=== PATIENT | female | born 1935 | race Caucasian/White ===

== ENCOUNTER → 2020-09-19 14:31 | Outpatient (BNVA) | payer MEDICARE, SELFPAY | PROVIDERS: Visit Provider Internal Medicine | DX: R55 Syncope and collapse (principal); E11.9 Type 2 diabetes mellitus without complications; E78.5 Hyperlipidemia, unspecified; I10 Essential (primary) hypertension; Z95.0 Presence of cardiac pacemaker; Z98.890 Other specified postprocedural states | CPT/HCPCS: 93005; 99202 ==

== ENCOUNTER 2020-10-08 09:53 | Outpatient (REF) | payer MEDICARE, SELFPAY ==
--- NOTE | ~2020-10-08 | US_ITS ---
EXAMINATION: US EXTRACRANIAL CAROTID DUPLEX, BILATERAL CLINICAL INFORMATION: Occlusion and stenosis of bilateral carotid arteries COMPARISON: Previous carotid ultrasound December 2013 TECHNIQUE: Real-time ultrasound and Doppler techniques (integrating B-mode 2-D vascular images, Doppler spectral analysis and color-flow Doppler imaging) were utilized to interrogate the extracranial carotid arteries, the vertebral arteries and proximal subclavian arteries bilaterally. The degree of stenosis is determined by criteria similar to NASCET. FINDINGS: Right Side: 1. There is significant atherosclerotic plaque seen in the bifurcation/proximal ICA region. 2. The common carotid artery PSV proximally is 31 cm/s and distally 57 cm/s. 3. The right internal carotid artery is occluded.. 4. The proximal external carotid artery PSV is 126 cm/s. 5. The vertebral artery shows 72 flow. 6. The subclavian artery waveforms are normal. Left Side: 1. There is calcified atherosclerotic plaque seen in the bifurcation/proximal ICA region. 2. The common carotid artery PSV proximally is 133 cm/s and distally 108 cm/s. 3. The proximal internal carotid artery velocities are 106 cm/s systolic and 19 cm/s diastolic. 4. The proximal external carotid artery PSV is 116 cm/s. 5. The vertebral artery shows antegrade flow. 6. The subclavian artery waveforms are normal. US/US carotid duplex BI IMPRESSION: 1. RIGHT: Right ICA occlusion. 2. LEFT: Calcified plaque. 0-49% left ICA stenosis. 3. There is no change in the category severity of disease when compared to the previous study dated 2013.
== END 2020-10-08 09:54 | disposition home or self-care (01) ==
LOC: HO.US 09:53
PROVIDERS: Visit Provider Internal Medicine
DX: I65.23 Occlusion and stenosis of bilateral carotid arteries (principal); Z98.890 Other specified postprocedural states
CPT/HCPCS: 93880

== ENCOUNTER → 2020-10-09 11:24 | Outpatient (REF) | payer MEDICARE, SELFPAY ==
--- NOTE | 2020-10-09 11:31 | CA_ITS ---
Transthoracic Echocardiogram Patient (Last, First, Middle): India Johnson M Gender: Female Date of : 1935 Age: 85 Procedure Date: 10/09/2020 Procedure Type: Transthoracic Echocardiogram Location: OP Height: 160.02 cm Weight: 81.65 kg BSA: 1.85 m2 Heart Rate: bpm BP: 120 / 84 mmHg Director Of Program Management: Referring MD: Marcus Mcdermott MD Symptoms: R55 - Syncope and collapse Study Quality: Fair ECG Rhythm: Ventriculary paced rhythm Conclusions: - The left ventricular systolic function is normal. The visually estimated ejection fraction is between 60-65%. - There is mild calcification of the aortic valve. - There is mild mitral annular calcification. - There is mild to moderate tricuspid valve regurgitation. Findings Left Ventricle Normal left ventricular cavity size. There is mildly increased left ventricular wall thickness. The left ventricular systolic function is normal. The visually estimated ejection fraction is between 60-65%. There is no evidence of regional wall motion abnormalities. E/E prime ratio is >15, consistent with elevated filling pressures. Evidence suggests grade I (mild) diastolic dysfunction. Right Ventricle Normal right ventricular cavity size and systolic function. There is a pacemaker wire seen in the right ventricle. Atria The left atrium is normal in size. The right atrium is normal in size. Aortic Valve There is a normal trileaflet aortic valve. There is mild calcification of the aortic valve. There is no aortic valve stenosis. There is trace (trivial) aortic valve regurgitation. Mitral Valve There is mild mitral annular calcification. There is trace mitral valve regurgitation. There is no mitral valve stenosis. Pulmonic Valve The pulmonic valve was not well visualized. Tricuspid Valve Normal tricuspid valve structure. There is mild to moderate tricuspid valve regurgitation. The pulmonary artery systolic pressure is normal. Great Vessels The aortic annulus, sinuses of valsalva, and asc aorta are normal in size. Venous The inferior vena cava is normal in size and collapses greater than 50% with inspiration. Pericardium/Pleural There is no evidence of pericardial effusion. Prior Study Comparison No prior study available for comparison. Measurements 2D Linear Measurements IVSd: 1.27 0.6-0.9/0.6-1.0 cm LVIDd: 3.56 3.9-5.3/4.2-5.9 cm LVIDd Index: 1.92 2.4-3.2/2.2-3.1 cm/m2 LVIDs: 2.23 2.0-3.6 cm LVPWd: 1.29 0.7-1.1 cm Ao Root: 2.90 2.1-3.5 cm LA Diam: 3.50 2.7-3.8/3.0-4.0 cm LAIDs Index: 1.89 1.5-2.3 cm/m2 LV Mass: 191.47 67-162/88-224 g LV Mass Index: 103.50 43-95/49-115 g/m2 LVOT Diam: 2.00 3.0+(-)1.3 cm Mitral Valve MV VTI: 0.38 MV Pk Deshawn: 1.55 MV Mn Deshawn: 0.91 MV Pk Grad: 10.00 MV Mn Grad: 4.00 MV Pk E: 0.96 MV PK A: 1.41 MV Decel Time: 264.00 E/A: 0.70 E'Lateral: 5.32 E'Medial: 4.35 E/E' Med: 22.10 E/E' Lat: 18.00 PHT: 77.00 MVA PHT: 2.86 MVA Continuity: 1.78 Decel Bledsoe: 3.64 Aortic Valve AoV Pk Deshawn: 1.27 AoV Mn Deshawn: 0.87 AoV VTI: 0.30 AoV Pk Grad: 6.00 Aov Mn Grad: 4.00 ANDREW Cont.VTI: 2.21 LVOT LVOT Pk Deshawn: 0.78 LVOT Mn Deshawn: 0.57 LVOT VTI: 0.21 LVOT Pk Grad: 2.00 LVOT Mn Grad: 1.00 LVOT Diam: 2.00 LVOT Area: 3.14 Diastolic Function MV Pk E: 0.96 MV Pk A: 1.41 E/A: 0.70 E'Medial: 4.35 E/E' Med: 22.10 E' Laterial: 5.32 E/E' Lat: 18.00 Tricuspid Valve TR Pk Deshawn: 2.26 TR Pk Grad: 20.00 Great Vessels Aorta Ao Root-2D: 2.90 2.0-3.7 cm Ao Asc: 3.10 2.1-3.4 cm Pulmonary Valve PV Pk Deshawn: 1.37 Peak PV Grad: 8.00 Updated in Other Vendor System with Status of Final Marcus Mcdermott MD electronically signed on 10/11/2020 2:20:19 PM with status of Final
== END ==
LOC: HO.CARD 11:24
PROVIDERS: Visit Provider Internal Medicine
DX: R55 Syncope and collapse (principal)
CPT/HCPCS: 93306

== ENCOUNTER → 2020-10-21 14:15 | Outpatient (BNVA) | payer MEDICARE, SELFPAY | PROVIDERS: Visit Provider Internal Medicine | DX: Z45.018 Encounter for adjustment and management of other part of cardiac pacemaker (principal); R55 Syncope and collapse; E11.8 Type 2 diabetes mellitus with unspecified complications; E78.5 Hyperlipidemia, unspecified; I10 Essential (primary) hypertension; Z98.890 Other specified postprocedural states | CPT/HCPCS: 99212 ==

== ENCOUNTER → 2021-06-23 12:19 | Outpatient (BNVA) | payer MEDICARE, SELFPAY | PROVIDERS: Visit Provider Internal Medicine | DX: Z45.018 Encounter for adjustment and management of other part of cardiac pacemaker (principal); R55 Syncope and collapse; E11.8 Type 2 diabetes mellitus with unspecified complications; I10 Essential (primary) hypertension; E78.5 Hyperlipidemia, unspecified; Z98.890 Other specified postprocedural states | CPT/HCPCS: 99212 ==

== ENCOUNTER → 2021-12-22 11:51 | Outpatient (BNVA) | payer MEDICARE, SELFPAY | PROVIDERS: Visit Provider Internal Medicine | DX: I47.1 Supraventricular tachycardia (principal); E11.9 Type 2 diabetes mellitus without complications; I10 Essential (primary) hypertension; E78.5 Hyperlipidemia, unspecified; Z79.4 Long term (current) use of insulin; Z79.899 Other long term (current) drug therapy; Z45.018 Encounter for adjustment and management of other part of cardiac pacemaker | CPT/HCPCS: 93280; 99212 ==

== ENCOUNTER 2022-06-09 23:40 | Emergency (ER) | payer MEDICARE, SELFPAY ==
--- NOTE | ~2022-06-09 | XR_ITS ---
EXAMINATION: XR CHEST CLINICAL INFORMATION: Sharp chest pain COMPARISON: 11/04/2011 TECHNIQUE: Frontal view of the chest was obtained. FINDINGS: Left chest wall pacer with leads over the right atrium and right ventricle. The lungs are well expanded. There is no focal consolidation, edema, or effusion. No pneumothorax. The cardiomediastinal silhouette is within normal limits of size with a calcified aorta. No acute osseous abnormality. XR/XR chest 1V IMPRESSION: No acute pulmonary disease.
[2022-06-10 00:02] VITALS: BP 132/56; BP 148/86; PULSE 68; RESP 16; TEMP 37.2; O2SAT 94; O2SAT 98; BMI 33.1
--- NOTE | 2022-06-10 00:14 | ED_ITS ---
HPI - Chest Pain General Chief Complaint: Chest Pain Stated Complaint: chest pressure Time Seen by Provider: 06/09/22 23:42 Source: patient and EMS Mode of arrival: EMS Limitations: no limitations History of Present Illness HPI narrative: Patient comes emergency room complaining of chest pain. Patient states that she was sleeping and had stabbing pain that lasted for less than 2nd, woke her from sleep and then self-resolved. Patient states the pain occurred 2 hours prior to arrival. Patient states that she call her roommate that she had chest pain which had already resolved, the roommate became concerned, called 911. Patient states that she feels well at this time, EMS gave her a full dose of aspirin. At this time, patient is asymptomatic, no chest pain no shortness of breath, no abdominal pain Related Data Home Medications Medication Instructions Recorded Confirmed amlodipine 10 mg tablet 10 mg PO DAILY 09/19/20 12/22/21 atorvastatin 10 mg tablet 10 mg PO DAILY 09/19/20 12/22/21 insulin glargine 100 unit/mL unit subcut 09/19/20 12/22/21 subcutaneous solution insulin lispro 100 unit/mL subcut 09/19/20 12/22/21 subcutaneous solution lisinopril 20 mg tablet 20 mg PO DAILY 09/19/20 12/22/21 metformin 500 mg tablet 500 mg PO BID 09/19/20 12/22/21 metoprolol tartrate 50 mg tablet 50 mg PO BID 09/19/20 12/22/21 aspirin 81 mg tablet,delayed 81 mg PO DAILY 10/21/20 12/22/21 release furosemide 40 mg tablet 40 mg PO DAILY 06/23/21 12/22/21 Allergies Allergy/AdvReac Type Severity Reaction Status Date / Time simvastatin [From Zocor] Allergy Mild RASH Verified 12/22/21 12:31 losartan [Cozaar] Allergy Unknown rash Verified 12/22/21 12:31 omeprazole [From Prilosec] AdvReac Mild NOT AN Verified 12/22/21 12:31 ALLERGY. PT DOES NOT THINK IT WORKS FOR HER Miacalcin Allergy Unknown rash Uncoded 12/22/21 12:31 Review of Systems Review of Systems: Constitutional : No Weight loss, No Fever, No Chills, No Night Sweats, No Fatigue, No Malaise ENT/Mouth : No Hearing loss, No Ear Pain, No Nasal Congestion, No Sinus Pain, No Hoarseness, No sore throat, No Rhinorrhea, No Swallowing Difficulty Eyes: No Eye Pain, No Swelling, No Redness, No Foreign Body, No Discharge, No Vision Changes Cardiovascular : Sharp chest pain lasting less than a 2nd approximately 2 hours prior to arrival,No SOB, No Dyspnea on Exertion, No Orthopnea, mild lower extremity edema, no palpitations Respiratory : No Cough, No Sputum, No Wheezing, No Smoke Exposure, No Dyspnea Gastrointestinal : No Nausea, No Vomiting, No Diarrhea, No Constipation, No abdominal Pain, No Hematochezia, No Melena Genitourinary : no irregular bleeding, No Dysuria, No Urinary Frequency, No Hematuria, No Urinary Incontinence, No Urgency, No Flank Pain, No Urinary Flow Changes, No Hesitancy Musculoskeletal : No joint pain, No Myalgias, No Joint Swelling Skin : No Skin Lesions, No rash Neuro : No Weakness, No Numbness, No Paresthesias, No Loss of Consciousness, No Dizziness, No Headache Psych : No Anxiety/Panic, No Depression, No SI/HI/AH/VH, No Social Issues, Heme/Lymph: No Bruising, No Bleeding,No Lymphadenopathy Endocrine : No Polyuria, No Polydipsia, No Temperature Intolerance PMFSH Past Medical History Medical History Essential hypertension Normally functioning cardiac pacemaker present Other and unspecified hyperlipidemia Type 2 diabetes mellitus with unspecified complications Surgical History History of hysterectomy Status post carotid endarterectomy Family History Family History Father Cancer Mother Heart attack Social History Social History Patient Tobacco Use Status: Never used Tobacco Smoked in Last 30 Days: No Use of substances other than those prescribed or required for medical reasons: No Advance Directives: No Physical Exam Vital Signs: Vital Signs: Last Vital Signs Temp 97.7 F 06/10/22 04:10 Pulse 70 06/10/22 04:10 Resp 20 06/10/22 04:10 BP 154/61 H 06/10/22 04:10 Pulse Ox 96 06/10/22 04:10 O2 Del Method 06/10/22 04:10 BMI result Body Mass Index 33.1 Const: Other: Appearance: Alert. Oriented X3. No acute distress. Eyes: Pupils equal, round and reactive to light. ENT: Pharynx normal. Neck: Normal inspection. Neck supple. No lymph nodes noted. No crepitus CVS: Normal heart rate and rhythm. Pulses normal. Normal S1 and S2 Respiratory: No respiratory distress. Breath sounds normal. No Wheezing. No rales Abdomen: Soft and nontender. No rigidity. No distention. Skin: Skin warm and dry. Normal skin color. Normal skin turgor. Extremities: No lower extremity edema. No Lacerations. No Rash Neuro: Oriented X 3. No motor deficit. No sensory deficit. Moving all extremities. No slurred speech. 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 Patient's creatinine is slightly bumped at 1.58. The last time that we have any labs from the patient was in 2015, creatinine was 0.86. Patient will be receiving a L of normal saline. Also, troponin 2. Will be checked along with a repeat chemistry, due at 345am patient's creatinine improved, almost back to Normal. Patient's troponin remains flat, stable, patient remains asymptomatic. Medications Administered Discontinued Medications Generic Name Dose Route Start Last Admin Trade Name Freq PRN Reason Stop Dose Admin Sodium Chloride 1,000 mls @ 999 mls/hr 06/10/22 01:21 06/10/22 03:16 Ns IVCONT 06/10/22 02:21 Infused .Q1H1M ONE Infusion MDM - Chest Pain Lab Data Result diagrams: 06/10/22 00:43 06/10/22 04:03 Labs: Lab Results 06/10/22 06/10/22 06/10/22 Range/Units 00:43 00:43 00:43 WBC 10.9 H (4.8-10.8) X10*3/uL RBC 4.04 L (4.20-5.50) X10*6/uL Hgb 12.1 (12.0-16.0) g/dl Hct 36.1 L (37.0-47.0) % MCV 89.4 (80.0-98.0) fL MCH 30.0 (27.0-33.0) pg MCHC 33.5 (31.0-35.0) g/dl RDW 12.4 (11.0-16.0) % Plt Count 204 (160-400) X10*3/uL MPV 10.6 (9.4-12.3) fL Immature Gran % (Auto) 0.5 H (0.0-0.4) % Neut % (Auto) 69.6 (45-73) % Lymph % (Auto) 20.4 (20-40) % [place] % (Auto) 6.5 (2-11) % Eos % (Auto) 2.4 (0-4) % Baso % (Auto) 0.6 (0-2) % Lymph # (Auto) 2.2 (1.2-4.9) X10*3/uL [place] # (Auto) 0.7 (0.1-1.2) X10*3/uL Eos # (Auto) 0.3 (0.0-0.4) X10*3/uL Baso # (Auto) 0.1 (0.0-0.2) X10*3/uL Abs Immat Gran (auto) 0.05 H (0.00-0.03) X10*3/uL Absolute Neuts (auto) 7.6 (2.0-8.3) x10*3/uL Absolute Nucleated RBC 0.000 (0.0-0.012) X10*3/uL Nucleated RBC % (auto) 0.0 (0.0-0.2) /100WBC Sodium 140 (135-145) mmol/L Potassium 4.3 (3.3-5.1) mmol/L Chloride 101 (96-108) mmol/L Carbon Dioxide 27 (22-29) mmol/L Anion Gap 16 (12-20) BUN 54 H (9-16) mg/dL Creatinine 1.58 H (0.5-1.4) mg/dL Estim Creat Clear Calc 26.4 Estimated GFR 31 Random Glucose 175 H (60-115) mg/dL Calcium 9.3 (8.4-10.2) mg/dL Total Bilirubin 0.5 (0.0-1.0) mg/dL Direct Bilirubin 0.2 (0.0-0.5) mg/dL AST 30 (5-31) U/L ALT 34 H (0-31) U/L Alkaline Phosphatase 97 (39-117) U/L Troponin I High Sens 5.8 (<3.5-17.0) ng/L B-Natriuretic Peptide (<100) pg/mL Total Protein 6.4 L (6.5-8.0) g/dL Albumin 3.9 (3.5-5.0) g/dL COVID-19 ([facility]UELANGEL) (Negative) COVID-19 Clin Com 06/10/22 06/10/22 06/10/22 Range/Units 00:43 00:43 01:52 WBC (4.8-10.8) X10*3/uL RBC (4.20-5.50) X10*6/uL Hgb (12.0-16.0) g/dl Hct (37.0-47.0) % MCV (80.0-98.0) fL MCH (27.0-33.0) pg MCHC (31.0-35.0) g/dl RDW (11.0-16.0) % Plt Count (160-400) X10*3/uL MPV (9.4-12.3) fL Immature Gran % (Auto) (0.0-0.4) % Neut % (Auto) (45-73) % Lymph % (Auto) (20-40) % [place] % (Auto) (2-11) % Eos % (Auto) (0-4) % Baso % (Auto) (0-2) % Lymph # (Auto) (1.2-4.9) X10*3/uL [place] # (Auto) (0.1-1.2) X10*3/uL Eos # (Auto) (0.0-0.4) X10*3/uL Baso # (Auto) (0.0-0.2) X10*3/uL Abs Immat Gran (auto) (0.00-0.03) X10*3/uL Absolute Neuts (auto) (2.0-8.3) x10*3/uL Absolute Nucleated RBC (0.0-0.012) X10*3/uL Nucleated RBC % (auto) (0.0-0.2) /100WBC Sodium 139 (135-145) mmol/L Potassium 4.6 (3.3-5.1) mmol/L Chloride 102 (96-108) mmol/L Carbon Dioxide 26 (22-29) mmol/L Anion Gap 16 (12-20) BUN 53 H (9-16) mg/dL Creatinine 1.50 H (0.5-1.4) mg/dL Estim Creat Clear Calc 27.7 Estimated GFR 33 Random Glucose 155 H (60-115) mg/dL Calcium 9.2 (8.4-10.2) mg/dL Total Bilirubin (0.0-1.0) mg/dL Direct Bilirubin (0.0-0.5) mg/dL AST (5-31) U/L ALT (0-31) U/L Alkaline Phosphatase (39-117) U/L Troponin I High Sens (<3.5-17.0) ng/L B-Natriuretic Peptide 38 (<100) pg/mL Total Protein (6.5-8.0) g/dL Albumin (3.5-5.0) g/dL COVID-19 ([facility]UELANGEL) Negative (Negative) COVID-19 Clin Com See Note 06/10/22 06/10/22 06/10/22 Range/Units 01:52 04:03 04:03 WBC (4.8-10.8) X10*3/uL RBC (4.20-5.50) X10*6/uL Hgb (12.0-16.0) g/dl Hct (37.0-47.0) % MCV (80.0-98.0) fL MCH (27.0-33.0) pg MCHC (31.0-35.0) g/dl RDW (11.0-16.0) % Plt Count (160-400) X10*3/uL MPV (9.4-12.3) fL Immature Gran % (Auto) (0.0-0.4) % Neut % (Auto) (45-73) % Lymph % (Auto) (20-40) % [place] % (Auto) (2-11) % Eos % (Auto) (0-4) % Baso % (Auto) (0-2) % Lymph # (Auto) (1.2-4.9) X10*3/uL [place] # (Auto) (0.1-1.2) X10*3/uL Eos # (Auto) (0.0-0.4) X10*3/uL Baso # (Auto) (0.0-0.2) X10*3/uL Abs Immat Gran (auto) (0.00-0.03) X10*3/uL Absolute Neuts (auto) (2.0-8.3) x10*3/uL Absolute Nucleated RBC (0.0-0.012) X10*3/uL Nucleated RBC % (auto) (0.0-0.2) /100WBC Sodium (135-145) mmol/L Potassium (3.3-5.1) mmol/L Chloride (96-108) mmol/L Carbon Dioxide (22-29) mmol/L Anion Gap (12-20) BUN (9-16) mg/dL Creatinine 1.45 H (0.5-1.4) mg/dL Estim Creat Clear Calc 28.7 Estimated GFR 34 Random Glucose (60-115) mg/dL Calcium (8.4-10.2) mg/dL Total Bilirubin (0.0-1.0) mg/dL Direct Bilirubin (0.0-0.5) mg/dL AST (5-31) U/L ALT (0-31) U/L Alkaline Phosphatase (39-117) U/L Troponin I High Sens 7.1 7.9 (<3.5-17.0) ng/L B-Natriuretic Peptide (<100) pg/mL Total Protein (6.5-8.0) g/dL Albumin (3.5-5.0) g/dL COVID-19 ([facility]UELANGEL) (Negative) COVID-19 Clin Com Discharge Plan Discharge Clinical Impression: Atypical chest pain, Acute kidney injury Patient Disposition: Home, Self-Care Instructions: Acute Kidney Injury (DC), Chest Pain (ED) Additional Instructions: FINDINGS: The lungs are well expanded. There is no focal consolidation, edema, or effusion. No pneumothorax. The cardiomediastinal silhouette is within normal limits. No acute osseous abnormality. XR/XR chest 1V IMPRESSION: Clear lungs. Prescriptions: No Action amlodipine 10 mg tablet 10 mg PO DAILY atorvastatin 10 mg tablet 10 mg PO DAILY Lantus U-100 Insulin 100 unit/mL solution subcut metoprolol tartrate 50 mg tablet 50 mg PO BID lisinopril 20 mg tablet 20 mg PO DAILY metformin 500 mg tablet 500 mg PO BID insulin lispro 100 unit/mL solution subcut aspirin 81 mg tablet,delayed release (DR/EC) 81 mg PO DAILY furosemide 40 mg tablet 40 mg PO DAILY
--- NOTE | 2022-06-10 00:18 | ECG_ITS ---
Test Reason : CHEST PAIN Blood Pressure : / mmHG Vent. Rate : 065 BPM Atrial Rate : 065 BPM P-R Int : 186 ms QRS Dur : 154 ms QT Int : 468 ms P-R-T Axes : 063 -42 102 degrees QTc Int : 486 ms Atrial-sensed ventricular-paced rhythm Abnormal ECG When compared with ECG of 29-APR-2016 13:44, Vent. rate has decreased BY 39 BPM Referred By: Neida Mace Electronically Signed By:GLORIA RICKS MD
[2022-06-10 00:51] LABS: MANUAL DIFF FLAG NO
[2022-06-10 00:52] LABS: Hemoglobin 12.1 g/dl (12.0-16.0); Imm Gran Abs Auto 0.05 X10*3/uL (0.00-0.03); Imm Gran Pct Auto 0.5 % (0.0-0.4); PLT CLUMP 1; SCAN SMEAR FLAG 1
[2022-06-10 00:54] VITALS: BP 136/55; PULSE 73; RESP 22; TEMP 36.7; O2SAT 95
[2022-06-10 00:54] LABS: Basophils Absolute Auto 0.1 X10*3/uL (0.0-0.2); Basophils Percent Auto 0.6 % (0-2); Eosinophils Absolute Auto 0.3 X10*3/uL (0.0-0.4); Eosinophils Percent Auto 2.4 % (0-4); Hematocrit 36.1 % (37.0-47.0); Lymphocytes Absolute Auto 2.2 X10*3/uL (1.2-4.9); Lymphocytes Percent Auto 20.4 % (20-40); Mean Corpuscular HGB Conc 33.5 g/dl (31.0-35.0); Mean Corpuscular Volume 89.4 fL (80.0-98.0); Mean Platelet Volume 10.6 fL (9.4-12.3); Monocytes Absolute Auto 0.7 X10*3/uL (0.1-1.2); Monocytes Percent Auto 6.5 % (2-11); Neutrophils Absolute Auto 7.6 x10*3/uL (2.0-8.3); Neutrophils Percent Auto 69.6 % (45-73); Red Blood Count 4.04 X10*6/uL (4.20-5.50); Red Cell Distribution Width 12.4 % (11.0-16.0)
[2022-06-10 01:01] LABS: Platelet Count 204 X10*3/uL (160-400); White Blood Count 10.9 X10*3/uL (4.8-10.8)
[2022-06-10 01:12] LABS: COVID-19 Test Negative (Negative); IDNOW Serial# BCCEAD1C
[2022-06-10 01:15] LABS: Alanine Aminotransferase 34 U/L (0-31); Albumin Level 3.9 g/dL (3.5-5.0); Alkaline Phosphatase 97 U/L (39-117); Anion Gap 16 (12-20); Aspartate Amino Transferase 30 U/L (5-31); Bilirubin Direct 0.2 mg/dL (0.0-0.5); Bilirubin Total 0.5 mg/dL (0.0-1.0); Blood Urea Nitrogen 54 mg/dL (9-16); Calcium 9.3 mg/dL (8.4-10.2); Carbon Dioxide 27 mmol/L (22-29); Chloride 101 mmol/L (96-108); Creatinine Clr Calc Pharmacy 26.4; Estimated Glomerular Filt Rate 31; Glucose Random 175 mg/dL (60-115); Potassium 4.3 mmol/L (3.3-5.1); Sodium 140 mmol/L (135-145); Total Protein 6.4 g/dL (6.5-8.0)
[2022-06-10 01:17] LABS: Troponin-I High Sensitivity 5.8 ng/L (<3.5-17.0)
[2022-06-10 01:18] LABS: B Type Natriuretic Peptide 38 pg/mL (<100)
[2022-06-10 02:12] LABS: Anion Gap 16 (12-20); Blood Urea Nitrogen 53 mg/dL (9-16); Calcium 9.2 mg/dL (8.4-10.2); Carbon Dioxide 26 mmol/L (22-29); Chloride 102 mmol/L (96-108); Creatinine Clr Calc Pharmacy 27.7; Estimated Glomerular Filt Rate 33; Glucose Random 155 mg/dL (60-115); Potassium 4.6 mmol/L (3.3-5.1); Sodium 139 mmol/L (135-145)
[2022-06-10] MEDS: 0.9 % Sodium Chloride 1,000 ML 999 ML IVCONT (02:15)
[2022-06-10 02:20] LABS: Troponin-I High Sensitivity 7.1 ng/L (<3.5-17.0)
[2022-06-10 03:02] VITALS: BP 131/47; PULSE 71; RESP 18; TEMP 36.4; O2SAT 96
[2022-06-10 04:10] VITALS: BP 154/61; PULSE 70; RESP 20; TEMP 36.5; O2SAT 96
--- NOTE | 2022-06-10 04:11 | PC.NURSE ---
Pt reports not experiencing chest pain at the time of the re-assessment. Pt has AV pacer, pt is on the monitor, IVF are running 100ml/hr, IV 20 L wrist. Pt is able to ambulate to the bathroom. Pt is + skin turgor, has pitting edema +1, normal pt. Pt lungs sounds are audible throughout bilaterally. Pt has 3 baby aspirin prior to arrival by EMS, pt appears on no distress. will continue to monitor.
--- NOTE | 2022-06-10 04:22 | PC.NURSE ---
pt used restroom twice ambulates good feels better when she just holds your arm while walking. she enjoys company gets very bored easily
[2022-06-10 04:25] LABS: Creatinine Clr Calc Pharmacy 28.7; Estimated Glomerular Filt Rate 34
[2022-06-10 04:29] LABS: Troponin-I High Sensitivity 7.9 ng/L (<3.5-17.0)
--- NOTE | 2022-06-10 04:57 | PC.NURSE ---
This RN attempted to call [place] alireza Calderon at [phone], no response.
--- NOTE | 2022-06-10 05:03 | PC.NURSE ---
[facility] called at 0500 for a bls transfer back to [place] [facility] per . ETA [id number]
[2022-06-10 08:45] VITALS: BP 134/78; PULSE 77; RESP 17; O2SAT 97
--- NOTE | 2022-06-10 09:08 | PC.NURSE ---
report called to DON of facility
== END 2022-06-10 09:08 | disposition home or self-care (01) ==
PROVIDERS: Emergency Provider Emergency Medicine; PCP Internal Medicine
DX: R07.89 Other chest pain (principal); R06.02 Shortness of breath; Z20.822 Contact with and (suspected) exposure to COVID-19; Z79.899 Other long term (current) drug therapy
CPT/HCPCS: 36415; 71045; 80048; 80076; 82565; 83880; 84484; 85025; 87635; 93005; 96360; 99284; 99285

== ENCOUNTER 2024-10-23 12:46 | Outpatient (AMB) | payer MEDICARE, SELFPAY ==
--- NOTE | 2024-10-23 13:02 | MHC.OFFVIS ---
Vital Signs 10/23/24 13:14 Height 5 ft 3 in Weight 174 lb 2.643 oz BMI 30.8 BP 104/60 Blood Pressure Location Lt brachial Position Sitting Pulse 73 Pulse Source Monitor Intake Visit Reasons: f/u w/ device check Allergies simvastatin [From Zocor] Allergy (Mild, Verified 12/22/21 12:31) RASH losartan [Cozaar] Allergy (Unknown, Verified 12/22/21 12:31) rash omeprazole [From Prilosec] Adverse Reaction (Mild, Verified 12/22/21 12:31) NOT AN ALLERGY. PT DOES NOT THINK IT WORKS FOR HER Miacalcin Allergy (Unknown, Uncoded 12/22/21 12:31) rash Medication List - Last Reconciled 10/23/24 by Marcus Mcdermott MD amlodipine 10 mg PO DAILY aspirin 81 mg PO DAILY atorvastatin 10 mg PO DAILY furosemide 40 mg PO DAILY insulin glargine units subcut insulin lispro subcut lisinopril 20 mg PO DAILY metformin 500 mg PO BID metoprolol tartrate 50 mg PO BID HPI Comments Details: [place] returns for follow-up. In the past, she has seen Dr. Lau several years ago but nothing recently. 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 Generator change around 2015. Otherwise, has diabetes, hypertension, carotid endarterectomy. She is very hard of hearing and sinus with her. According to him, she has been okay for the most part. No clear-cut cardiac symptoms. Lives in [facility]. [facility] Medical History Essential hypertension Normally functioning cardiac pacemaker present Other and unspecified hyperlipidemia Type 2 diabetes mellitus with unspecified complications Surgical History History of hysterectomy Status post carotid endarterectomy Family History Father Cancer Mother Heart attack Social History Patient Tobacco Use Status: Never used Tobacco Review of Systems Const Denies weakness ENT Denies dizziness Card Denies chest pain, Denies chest pain with activity, Denies syncope, Denies rapid heart rate, Denies pedal edema, Denies edema, Denies leg edema, Denies lightheadedness, Denies palpitations, Denies dyspnea, Denies dyspnea on exertion and Denies orthopnea Resp Denies cough, Denies dyspnea and Denies dyspnea on exertion GI Denies hematochezia and Denies change in stool character Musc Denies abnormal gait, Denies muscle cramps, Denies muscle weakness, Denies numbness, Denies radiating pain into limb and Denies tingling Neuro Denies abnormal gait, Denies dizziness, Denies syncope, Denies numbness, Denies tingling and Denies weakness Endo Denies palpitations Physical Exam Vital Signs: Last Vital Signs Pulse 73 10/23/24 13:14 BP 104/60 10/23/24 13:14 BMI result Body Mass Index 30.8 Const General: comfortable and no acute distress Orientation/consciousness: patient oriented x3 HEENT Other: Unremarkable Head: Yes normal to inspection Neck Neck: Yes normal visual inspection Chest Chest palpation & inspection: normal inspection of the chest Resp Auscultation: clear to auscultation bilaterally Cardio Palpation: normal PMI Heart sounds: S1 normal heart sound present, S2 normal heart sound present, no gallops, no murmurs and no rubs GI Palpation (GI): Soft to palpation Back/Spine/Pelvis Other: unremarkable Skin General skin exam: no rashes or lesions noted Neuro General: patient oriented x3 Extrem General: Yes normal to inspection Psych Mental Status: mental status grossly normal Office Procedures Cardiac Device Check Cardiac Device Check Details: Pacemaker interrogated today. Dual-chamber device, programmed DDD. Battery status 11.5 months. Normal lead parameters. Atrial lead noise. Question of SVT/AFib but very brief. AP 19%, THIRD MILLER >99%. Overall, normal device function. 81103-[id number] Cardiac Device Check, pacemaker dual lead Procedure code (CPT) selection complete EKG Details: EKG with atrial sensed, ventricular paced rhythm at 73/Min. [id number], Complete Assessment & Plan Assessment & Plan (1) Normally functioning cardiac pacemaker present: Code(s): Z95.0 - Presence of cardiac pacemaker Category: Medical Plan: Checked as above and with normal function. We will try to set up remote monitoring. New transmitter given. Recheck in clinic in 6 months. (2) Atrial tachycardia: Code(s): I47.1 - Supraventricular tachycardia Category: Medical Plan: Brief episodes and nothing persistent. Continue beta-blockers. (3) Essential hypertension: Code(s): I10 - Essential (primary) hypertension Category: Medical Plan: On amlodipine/lisinopril/metoprolol. Stable. 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 Listed to be on aspirin/statins. Plan Discussed with son who came for appointment. Orders: Orders CA echo transthoracic complete Today I47.1 - Supraventricular tachycardia Coding Level of Care Code Est Pt Level 4 (28904) Complex EM visit Add On G2211 Diagnoses Normally functioning cardiac pacemaker present Z95.0 Atrial tachycardia I47.1 Essential hypertension I10 Status post carotid endarterectomy Z98.890 CPT Codes Cardiac Device Check - Cardiac Device 2: 18346-DS Cardiac Device Check, pacemaker dual lead ([id number]) EKG - CPT: 43801-Qpeisngumnzewkptd, Complete ([id number])
[2024-10-23 13:14] VITALS: BP 104/60; PULSE 73; BMI 30.8
== END 2024-10-23 13:41 | disposition home or self-care (01) ==
LOC: HO.HCS 12:47
PROVIDERS: PCP Internal Medicine; Visit Provider Internal Medicine
DX: I47.10 Supraventricular tachycardia, unspecified (principal); Z95.0 Presence of cardiac pacemaker; I10 Essential (primary) hypertension; Z98.890 Other specified postprocedural states
CPT/HCPCS: 93010; 93280; 99214; G2211

== ENCOUNTER → 2024-10-23 12:46 | Outpatient (BNVA) | payer MEDICARE, SELFPAY | PROVIDERS: PCP Internal Medicine; Visit Provider Internal Medicine | DX: I10 Essential (primary) hypertension (principal); I47.10 Supraventricular tachycardia, unspecified; Z95.0 Presence of cardiac pacemaker; Z45.018 Encounter for adjustment and management of other part of cardiac pacemaker | CPT/HCPCS: 93005; 93280; 99212 ==

== ENCOUNTER → 2024-11-03 23:59 | Outpatient (BNV) | payer MEDICARE, SELFPAY ==
--- NOTE | 2024-11-12 15:17 | A.OFFVIS_ITS ---
Intake Visit Reasons: Remote Device [facility] Allergies simvastatin [From Zocor] Allergy (Mild, Verified 12/22/21 12:31) RASH losartan [Cozaar] Allergy (Unknown, Verified 12/22/21 12:31) rash omeprazole [From Prilosec] Adverse Reaction (Mild, Verified 12/22/21 12:31) NOT AN ALLERGY. PT DOES NOT THINK IT WORKS FOR HER Miacalcin Allergy (Unknown, Uncoded 12/22/21 12:31) rash PFSH Medical History Essential hypertension Normally functioning cardiac pacemaker present Other and unspecified hyperlipidemia Type 2 diabetes mellitus with unspecified complications Surgical History History of hysterectomy Status post carotid endarterectomy Family History Father Cancer Mother Heart attack Social History Patient Tobacco Use Status: Never used Tobacco Office Procedures Cardiac Device Check Cardiac Device Check Details: Date of service- 11/03/2024 ; Battery life >11 months; normal lead parameters; AP 49%; CARE MANAGEMENT SPECIALIST >99%; no significant arrhythmias. Possible atrial noise. Overall normal device function. [id number] Cardiac Device Interrogation, pacemaker Procedure code (CPT) selection complete Assessment & Plan Assessment & Plan (1) Normally functioning cardiac pacemaker present: Code(s): Z95.0 - Presence of cardiac pacemaker Category: Medical (2) Atrial tachycardia: Code(s): I47.1 - Supraventricular tachycardia Category: Medical Plan x Coding Level of Care Code Procedure Only Diagnoses Normally functioning cardiac pacemaker present Z95.0 Atrial tachycardia I47.1 CPT Codes Cardiac Device Check - Cardiac Device 12: [id number] Cardiac Device Interrogation, pacemaker ([id number])
== END ==
PROVIDERS: PCP Internal Medicine; Visit Provider Internal Medicine
DX: I47.10 Supraventricular tachycardia, unspecified (principal); Z95.0 Presence of cardiac pacemaker
CPT/HCPCS: 93294

== ENCOUNTER 2025-04-23 12:54 | Outpatient (AMB) | payer MEDICARE, SELFPAY ==
--- NOTE | 2025-04-23 13:04 | A.OFFVIS_ITS ---
Vital Signs 04/23/25 13:05 Height 5 ft 3 in Weight 173 lb BMI 30.6 BP 122/68 Blood Pressure Location Lt brachial Position Sitting Pulse 72 Pulse Source Pulse Oximeter Intake Visit Reasons: 6 m[address] [facility] pacer ck s/p echo Allergies simvastatin (From Zocor) Allergy (Mild, Verified 12/22/21 12:31) RASH losartan (Cozaar) Allergy (Unknown, Verified 12/22/21 12:31) rash omeprazole (From Prilosec) Adverse Reaction (Mild, Verified 12/22/21 12:31) NOT AN ALLERGY. PT DOES NOT THINK IT WORKS FOR HER Miacalcin Allergy (Unknown, Uncoded 12/22/21 12:31) rash Medication List - Last Reconciled 04/23/25 by Marcus Mcdermott MD amlodipine 10 mg PO DAILY aspirin 81 mg PO DAILY atorvastatin 10 mg PO DAILY furosemide 40 mg PO DAILY insulin glargine units subcut insulin lispro subcut lisinopril 20 mg PO DAILY metformin 500 mg PO BID metoprolol tartrate 50 mg PO BID HPI Comments Details: [place] returns for follow-up. She has seen Dr. Lau several years ago but nothing recently. 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 Generator change around 2015. Otherwise, has diabetes, hypertension, carotid endarterectomy. Generally, she is doing fine. No clear-cut cardiac concerns. No symptoms whatsoever. [facility] Medical History Essential hypertension Normally functioning cardiac pacemaker present Other and unspecified hyperlipidemia Type 2 diabetes mellitus with unspecified complications Surgical History History of hysterectomy Status post carotid endarterectomy Family History Father Cancer Mother Heart attack Social History Patient Tobacco Use Status: Never used Tobacco Review of Systems Const All systems reviewed & are unremarkable except as noted in HPI and below Reports as per HPI and Reports no additional complaints Eyes Reports as per HPI and Denies no additional complaints ENT Denies no additional complaints and Reports as per HPI Card Reports as per HPI, Reports no additional complaints, Denies acrocyanosis, Denies chest pain, Denies leg edema, Denies lightheadedness, Denies palpitations and Denies dyspnea Resp Reports as per HPI, Denies no additional complaints and Denies dyspnea GI Reports as per HPI and Denies no additional complaints Reports as per HPI Musc Reports no additional complaints and Reports as per HPI Skin/Breast Reports system reviewed and no additional complaints, except as documented Neuro Reports no additional complaints and Reports as per HPI Psych Reports no additional complaints and Reports as per HPI Endo Reports no additional complaints, Reports as per HPI and Denies palpitations Pravin/Lymph Reports no additional complaints and Reports as per HPI Aller/Immun Reports no additional complaints and Reports as per HPI Physical Exam Vital Signs: Last Vital Signs Pulse 72 04/23/25 13:05 BP 122/68 04/23/25 13:05 BMI result Body Mass Index 30.6 Const General: comfortable and no acute distress Orientation/consciousness: patient oriented x3 HEENT Other: Unremarkable Head: Yes normal to inspection Neck Neck: Yes normal visual inspection Chest Chest palpation & inspection: normal inspection of the chest Resp Auscultation: clear to auscultation bilaterally Cardio Palpation: normal PMI Heart sounds: S1 normal heart sound present, S2 normal heart sound present, no gallops, no murmurs and no rubs GI Palpation (GI): Soft to palpation Back/Spine/Pelvis Other: unremarkable Skin General skin exam: no rashes or lesions noted Neuro General: patient oriented x3 Extrem General: Yes normal to inspection Psych Mental Status: mental status grossly normal Office Procedures Cardiac Device Check Cardiac Device Check Details: Pacemaker interrogated today. Dual-chamber device, programmed DDD. Battery status about about 10 months. Atrial pacing 33%. Ventricular pacing > 99%. Normal lead parameters but there was some atrial noise. Short atrial runs but lasting only seconds; could be either atrial tachycardia vs flutter/fibrillation. Do not see anything prolonged. Overall, normal device function. [id number] Cardiac Device Check, pacemaker dual lead Procedure code (CPT) selection complete Assessment & Plan Assessment & Plan (1) Normally functioning cardiac pacemaker present: Code(s): Z95.0 - Presence of cardiac pacemaker Category: Medical Plan: Checked as above and with normal function. Remote monitoring is still intermittent and advised him to set it up again. Otherwise, follow up in 6 months time. Generator change at the appropriate time. (2) Atrial tachycardia: Code(s): I47.1 - Supraventricular tachycardia Category: Medical Plan: Appears quite brief. Based on stated atrial rates, some of this could also be atrial flutter/fibrillation. However, lasting only sec. If anything more prolonged, we will need to do anticoagulation. We discussed about this today. (3) Essential hypertension: Code(s): I10 - Essential (primary) hypertension Category: Medical Plan: On amlodipine/lisinopril/metoprolol. Stable. 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 Listed to be on aspirin/statins. Plan Discussion Notes During the visit, we discussed the management of atrial fibrillation, emphasizing the importance of monitoring episodes through pacemaker data. I explained that if episodes become more frequent or prolonged, anticoagulation therapy might be necessary to prevent stroke. We also talked about the need for a home monitoring setup to ensure continuous data transmission from the pacemaker. Patient was informed and verbally consented to the use of an ambient scribe for clinic note documentation during this visit. Discussed with daughter who came for appointment. Patient Instructions: - Ensure the pacemaker is connected to a home monitoring device for continuous data transmission. - Follow up in six months for a routine check-up. Coding Level of Care Code Est Pt Level 4 (58322) Complex EM visit Add On G2211 Diagnoses Normally functioning cardiac pacemaker present Z95.0 Atrial tachycardia I47.1 Essential hypertension I10 Status post carotid endarterectomy Z98.890 CPT Codes Cardiac Device Check - Cardiac Device 2: [id number] Cardiac Device Check, pacemaker dual lead ([id number])
[2025-04-23 13:05] VITALS: BP 122/68; PULSE 72; BMI 30.6
--- OUTSIDE RECORDS SUMMARY | 2025-04-23 15:15 | XMS_ITS | Encounter Summary ---
Author Organization [facility] Address [address] [place] [address] Care Team Providers Care Transport Truck Driver Name Role Phone Sara Jackson MD Primary Care Provider + Encounter Details Date Type Department Care Team (Late st Contact Info) Description 03/08/2025 Lab Requisition [facility] - Main Lab [address] [facility] [place] [address] Sara Jackson MD [address] [facility] [address] [place], [place] [id number] Urinary tract infection, site not specified; Altered mental status, unspecified Social History Tobacco Use Types Packs/Day Years Used Date Smoking Tobacco: Never Assessed Comments Unknown Sex and Gender Information Value Date Recorded Sex Assigned at Not on file Legal Sex Female 4:14 PM EST Gender Identity Not on file Sexual Orientation Not on file documented as of this encounter Plan of Treatment Not on file documented as of this encounter Procedures Procedure Name Priority Date/Time Associated Diagnosis Comments URINALYSIS WITH REFLEX MICROSCOPIC Routine 03/08/2025 12:00 AM EDT Urinary tract infection, site not specified Altered mental status, unspecified URINALYSIS WITH REFLEX MICROSCOPIC Routine 03/08/2025 12:00 AM EDT Urinary tract infection, site not specified Altered mental status, unspecified CULTURE URINE Routine 03/08/2025 12:00 AM EDT Urinary tract infection, site not specified Altered mental status, unspecified documented in this encounter Results * Urinalysis with reflex microscopic (03/08/2025 12:00 AM EDT) Specific [place] Urine 1.009 1.003 - 1.030 LAB URINALYSIS - AUTOMATED METHOD 03/08/2025 10:03 AM [facility] LAB pH, Urine 6.0 5.0 - 8.0 pH LAB URINALYSIS - AUTOMATED METHOD 03/08/2025 10:03 AM [facility] Leukocytes, Urine Negative Negative LAB URINALYSIS - AUTOMATED METHOD 03/08/2025 10:03 AM [facility] Nitrite, Urine Negative Negative LAB URINALYSIS - AUTOMATED METHOD 03/08/2025 10:03 AM [facility] Protein, Urine Negative <=Trace mg/dL LAB URINALYSIS - AUTOMATED METHOD 03/08/2025 10:03 AM [facility] Glucose, Urine Negative Negative mg/dL LAB URINALYSIS - AUTOMATED METHOD 03/08/2025 10:03 AM [facility] Ketones, Urine Negative Negative mg/dL LAB URINALYSIS - AUTOMATED METHOD 03/08/2025 10:03 AM [facility] Urobilinogen, Urine 0.2 0.2 - 1.0 mg/dL LAB URINALYSIS - AUTOMATED METHOD 03/08/2025 10:03 AM [facility] Bilirubin, Urine Negative Negative LAB URINALYSIS - AUTOMATED METHOD 03/08/2025 10:03 AM [facility] Blood, Urine Negative Negative LAB URINALYSIS - AUTOMATED METHOD 03/08/2025 10:03 AM [facility] Urine Urine specimen obtained by clean catch procedure / Unknown Non-blood Collection / Unknown 03/08/2025 03/08/2025 9:52 AM EDT us Sara Jackson MD LAB URINE ORDERABLES Fin al Result [facility] [address] [place] [address], * Culture urine (03/08/2025 12:00 AM EDT) Culture, Urine 10,000-49,000 CFU/mL Mixed urogenital hay, no uropathogens present. Suggest repeat specimen if clinically indicated. 03/09/2025 8:52 AM EDT [facility] Urine Urine specimen obtained by clean catch procedure / Unknown Non-blood Collection / Unknown 03/08/2025 03/08/2025 9:52 AM EDT us Sara Jackson MD LAB MICROBIOLOGY - GENER AL ORDERABLES Final Result [facility] [address] [place] [address], documented in this encounter Visit Diagnoses Diagnosis Urinary tract infection, site not specified Altered mental status, unspecified documented in this encounter Care Teams Transport Truck Driver Relationship Specialty Start Date End Date Sara Jackson MD PCP - General Family Medicine 11/30/24 documented as of this encounter
--- OUTSIDE RECORDS SUMMARY | 2025-04-23 15:15 | XMS_ITS | Encounter Summary ---
Author Organization [facility] Address [address] [place] [address] Care Team Providers Care Stitching Machine Operator Name Role Phone Sara Jackson MD Primary Care Provider + Encounter Details Date Type Department Care Team (Late st Contact Info) Description 11/30/2024 Lab Requisition [facility] - Main Lab [address] [facility] [place] [address] Sara Jackson MD [address] [facility] [address] [place] [address] Essential (primary) hypertension; Type 2 diabetes mellitus without complications (CMS/HCC V24, CMS/HCC V28) Social History Tobacco Use Types Packs/Day Years [...] Procedure Name Priority Date/Time Associated Diagnosis Comments LIPID PANEL WITH REFLEX TO DIRECT LDL Routine 11/30/2024 6:35 AM EDT Essential (primary) hypertension Type 2 diabetes mellitus without complications (CMS/HCC V24, CMS/HCC V28) COMPLETE BLOOD COUNT Routine 11/30/2024 6:35 AM EDT Essential (primary) hypertension Type 2 diabetes mellitus without complications (CMS/HCC V24, CMS/HCC V28) HEMOGLOBIN A1C Routine 11/30/2024 6:35 AM EDT Essential (primary) hypertension Type 2 diabetes mellitus without complications (CMS/HCC V24, CMS/HCC V28) COMPREHENSIVE METABOLIC PANEL Routine 11/30/2024 6:35 AM EDT Essential (primary) hypertension Type 2 diabetes mellitus without complications ([facility] V24, [facility] V28) documented in this encounter Results * (ABNORMAL) Hemoglobin A1c (11/30/2024 6:35 AM EDT) Hemoglobin A1C 7.5(H) <6.5 % LAB CHEMISTRY METHOD 11/30/2024 12:02 PM EDT [facility] Mean Bld Glu Estim. 169 mg/dL LAB CHEMISTRY METHOD 11/30/2024 12:02 PM EDT [facility] Blood Venous blood specimen / Unknown Venipuncture / Unknown 11/30/2024 6:35 AM EDT 11/30/2024 8:27 AM EDT Sara Jackson MD LAB BLOOD ORDERABLES Fin al Result [facility] [address] [place] [address], [place] [phone] * (ABNORMAL) Lipid panel with reflex to direct LDL (11/30/2024 6:35 AM EDT) [facility] Cholesterol 125 0 - 200 mg/dL LAB CHEMISTRY METHOD 11/30/2024 8:58 AM EDT [facility] Triglycerides 180(H) 0 - 150 mg/dL LAB CHEMISTRY METHOD 11/30/2024 8:58 AM EDT [facility] HDL 39(L) >=40 mg/dL LAB CHEMISTRY METHOD 11/30/2024 8:58 AM EDT [facility] LDL Calculated 50 0 - 100 mg/dL LAB CHEMISTRY METHOD 11/30/2024 8:58 AM EDT [facility] VLDL Cholesterol Sami 36 mg/dL LAB CHEMISTRY METHOD 11/30/2024 8:58 AM EDT [facility] Non HDL Chol. (LDL+VLDL) 86 <145 mg/dL LAB CHEMISTRY METHOD 11/30/2024 8:58 AM [facility] Chol/HDL Ratio 3.2 0.0 - 4.4 LAB CHEMISTRY METHOD 11/30/2024 8:58 AM [facility] Blood Venous blood specimen / Unknown Venipuncture / Unknown 11/30/2024 6:35 AM EDT 11/30/2024 8:27 AM EDT us Sara Jackson MD LAB BLOOD ORDERABLES Fin al Result [facility] [address] [place] [address], [place] [phone] * (ABNORMAL) Comprehensive metabolic panel (11/30/2024 6:35 AM EDT) Sodium 143 133 - 145 mmol/L LAB CHEMISTRY METHOD 11/30/2024 8:58 AM [facility] Potassium 4.3 3.5 - 5.5 mmol/L LAB CHEMISTRY METHOD 11/30/2024 8:58 AM [facility] Chloride 110 96 - 110 mmol/L LAB CHEMISTRY METHOD 11/30/2024 8:58 AM [facility] CO2 27 21 - 32 mmol/L LAB CHEMISTRY METHOD 11/30/2024 8:58 AM [facility] Anion Gap 6 3 - 11 LAB CHEMISTRY METHOD 11/30/2024 8:58 AM [facility] Glucose 104(H) 70 - 100 mg/dL LAB CHEMISTRY METHOD 11/30/2024 8:58 AM [facility] BUN 26(H) 5 - 25 mg/dL LAB CHEMISTRY METHOD 11/30/2024 8:58 AM [facility] Creatinine 1.04 0.50 - 1.10 mg/dL LAB CHEMISTRY METHOD 11/30/2024 8:58 AM [facility] eGFR 51(L) >=60 mL/min/1. 73m2 LAB CHEMISTRY METHOD 11/30/2024 8:58 AM [facility] LAB Comment:Calculation based on the Chronic Kidney Disease Epidemiology Collaboration (CKD-EPI) equation refit without adjustment for race. BUN/Creatinine Ratio 25.0 LAB CHEMISTRY METHOD 11/30/2024 8:58 AM [facility] Calcium 8.6 8.5 - 10.5 mg/dL LAB CHEMISTRY METHOD 11/30/2024 8:58 AM [facility] AST (SGOT) 71(H) 10 - 42 unit/L LAB CHEMISTRY METHOD 11/30/2024 8:58 AM [facility] ALT (SGPT) 124(H) 10 - 60 unit/L LAB CHEMISTRY METHOD 11/30/2024 8:58 AM [facility] Alkaline Phosphatase 90 42 - 121 unit/L LAB CHEMISTRY METHOD 11/30/2024 8:58 AM [facility] Total Protein 5.7(L) 6.0 - 8.0 g/dL LAB CHEMISTRY METHOD 11/30/2024 8:58 AM [facility] Albumin 2.9(L) 3.2 - 5.0 g/dL LAB CHEMISTRY METHOD 11/30/2024 8:58 AM [facility] Total Bilirubin 0.8 0.0 - 1.4 mg/dL LAB CHEMISTRY METHOD 11/30/2024 8:58 AM [facility] Blood Venous blood specimen / Unknown Venipuncture / Unknown 11/30/2024 6:35 AM EDT 11/30/2024 8:27 AM EDT us Sara Jackson MD LAB BLOOD ORDERABLES Fin al Result [facility] [address] [place] [address], [place] [phone] * (ABNORMAL) Complete blood count (11/30/2024 6:35 AM EDT) [facility] Signature WBC 6.7 4.8 - 10.8 K/mcL LAB HEMETOLOGY METHOD 11/30/2024 8:40 AM EDT [facility] RBC 3.60(L) 3.80 - 4.80 M/mcL LAB HEMETOLOGY METHOD 11/30/2024 8:40 AM EDT [facility] Hemoglobin 11.0(L) 11.5 - 16.0 g/dL LAB HEMETOLOGY METHOD 11/30/2024 8:40 AM T [facility] Hematocrit 33.4(L) 35.0 - 47.0 % LAB HEMETOLOGY [facility]30[facility]24 8[facility] MCV 92.8 79.0 - 98.0 FL LAB HEMETOLOGY METHOD [facility]/30[facility]2024 8[facility] MCH 30.6 27.0 - 32.0 pcg LAB HEMETOLOGY METHOD 11/30[facility]2024 [facility] MCHC 32.9 32.0 - 37.0 g/dL LAB HEMETOLOGY METHOD 11/30/2024 8:40 AM [facility] RDW 12.8 11.0 - 15.0 % LAB HEMETOLOGY METHOD 11/30/2024 8:40 AM EDT [facility] Platelets 198 130 - 400 K/mcL LAB HEMETOLOGY METHOD 11/30/2024 8:40 AM EDT [facility] MPV 11.1(H) 7.0 - 11.0 FL LAB HEMETOLOGY METHOD [facility]/30[facility]2024 [facility] NRBC 0.0 <1.0 % LAB HEMETOLOGY METHOD 11/30/2024 8:40 AM EDT [facility] NRBC Absolute 0.00 <0.10 K/mcL LAB HEMETOLOGY METHOD 11/30/2024 8:40 AM EDT [facility] Blood Venous blood specimen / Unknown Venipuncture / Unknown 11/30/2024 6:35 AM EDT 11/30/2024 8:27 AM EDT us Sara Jackson MD LAB BLOOD ORDERABLES Fin al Result [facility] [address] [place] [address], documented in this encounter Visit Diagnoses Diagnosis Essential (primary) hypertension Unspecified essential hypertension Type 2 diabetes mellitus without complications (CMS/HCC V24, CMS/HCC V28) documented in this encounter Care Teams Stitching Machine Operator Relationship Specialty Start Date End Date Sara Jackson MD PCP - General Family Medicine 11/30/24 documented as of this encounter
--- OUTSIDE RECORDS SUMMARY | 2025-04-23 15:15 | XMS_ITS | Encounter Summary ---
Author Organization [facility] Address [address] [place] [address] Care Team Providers Care Heating And Air Conditioning Mechanic Name Role Phone Sara Jackson MD Primary Care Provider + Encounter Details Date Type Department Care Team (Late st Contact Info) Description 12/22/2024 Lab Requisition [facility] - Main Lab [address] [place] [address] Sara Jackson MD [address] [phone] Chronic kidney disease, unspecified; Type 2 diabetes mellitus without complications (CMS/HCC [...] Procedure Name Priority Date/Time Associated Diagnosis Comments COMPREHENSIVE METABOLIC PANEL Routine 12/25/2024 8:04 AM EDT Chronic kidney disease, unspecified Type 2 diabetes mellitus without complications (CMS/HCC V24, CMS/HCC V28) documented in this encounter Results * (ABNORMAL) Comprehensive metabolic panel (12/25/2024 8:04 AM EDT) Sodium 140 133 - 145 mmol/L LAB CHEMISTRY METHOD 12/25/2024 1:18 PM EDT [facility] Potassium 4.4 3.5 - 5.5 mmol/L LAB CHEMISTRY METHOD 12/25/2024 1:18 PM EDT [facility] Chloride 106 96 - 110 mmol/L LAB CHEMISTRY METHOD 12/25/2024 1:[address] [facility] CO2 25 21 - 32 mmol/L LAB CHEMISTRY METHOD 12/25/2024 1:[address] [facility] Anion Gap 9 3 - 11 LAB CHEMISTRY METHOD 12/25/2024 1:[address] [facility] Glucose 61(L) 70 - 100 mg/dL LAB CHEMISTRY METHOD 12/25/2024 1:[address] [facility] BUN 45(H) 5 - 25 mg/dL LAB CHEMISTRY METHOD 12/25/2024 1:[address] [facility] Comment:Results verified by repeat testing Creatinine 1.82(H) 0.50 - 1.10 mg/dL LAB CHEMISTRY METHOD 12/25/2024 1:[address] [facility] eGFR 26(L) >=60 mL/min/1. 73m2 LAB CHEMISTRY METHOD 12/25/2024 1:[address] [facility] Comment:Calculation based on the Chronic Kidney Disease Epidemiology Collaboration (CKD-EPI) equation refit without adjustment for race. BUN/Creatinine Ratio 24.7 LAB CHEMISTRY METHOD 12/25/2024 1:[address] [facility] Calcium 9.0 8.5 - 10.5 mg/dL LAB CHEMISTRY METHOD 12/25/2024 1:[address] [facility] AST (SGOT) 19 10 - 42 unit/L LAB CHEMISTRY METHOD 12/25/2024 1:[address] [facility] ALT (SGPT) 25 10 - 60 unit/L LAB CHEMISTRY METHOD 12/25/2024 1:[address] [facility] Comment:Results verified by repeat testing Alkaline Phosphatase 72 42 - 121 unit/L LAB CHEMISTRY METHOD 12/25/2024 1:[address] [facility] Total Protein 6.4 6.0 - 8.0 g/dL LAB CHEMISTRY METHOD 12/25/2024 1:18 PM EDT [facility] Albumin 3.3 3.2 - 5.0 g/dL LAB CHEMISTRY METHOD 12/25/2024 1:18 PM EDT [facility] Total Bilirubin 1.0 0.0 - 1.4 mg/dL LAB CHEMISTRY METHOD 12/25/2024 1:18 PM EDT [facility] Blood Venous blood specimen / Unknown Venipuncture / Unknown 12/25/2024 8:04 AM EDT 12/25/2024 11:02 AM EDT us Sara Jackson MD LAB BLOOD ORDERABLES Fin al Result [facility] [address] [place] [address], documented in this encounter Visit Diagnoses Diagnosis Chronic kidney disease, unspecified Type 2 diabetes mellitus without complications (CMS/HCC V24, CMS/HCC V28) documented in this encounter Care Teams Heating And Air Conditioning Mechanic Relationship Specialty Start Date End Date Sara Jackson MD PCP - General Family Medicine 11/30/24 documented as of this encounter
--- OUTSIDE RECORDS SUMMARY | 2025-04-23 15:15 | XMS_ITS | Encounter Summary ---
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, CMS/HCC V28) Social History Tobacco [...] Procedure Name Priority Date/Time Associated Diagnosis Comments COMPLETE BLOOD COUNT Routine 02/19/2025 8:57 AM EDT 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, CMS/HCC V28) COMPREHENSIVE METABOLIC PANEL Routine 02/19/2025 8:57 AM EDT 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, CMS/HCC V28) documented in this encounter Results * (ABNORMAL) Comprehensive metabolic panel (02/19/2025 8:57 AM EDT) Sodium 140 133 - 145 mmol/L LAB CHEMISTRY METHOD [facility] Potassium 4.1 3.5 - 5.5 mmol/L LAB CHEMISTRY METHOD 02/19/2025 12:52 PM [facility] LAB Chloride 105 96 - 110 mmol/L LAB CHEMISTRY METHOD 02/19/2025 12:52 PM [facility] CO2 28 21 - 32 mmol/L LAB CHEMISTRY METHOD 02/19/2025 12:52 PM [facility] Anion Gap 7 3 - 11 LAB CHEMISTRY METHOD 02/19/2025 12:52 PM [facility] LAB Glucose 152(H) 70 - 100 mg/dL LAB CHEMISTRY METHOD 02/19/2025 12:52 PM [facility] BUN 27(H) 5 - 25 mg/dL LAB CHEMISTRY METHOD 02/19/2025 12:52 PM [facility] LAB Creatinine 1.34(H) 0.50 - 1.10 mg/dL LAB CHEMISTRY METHOD 02/19/2025 12:52 PM [facility] LAB eGFR 38(L) >=60 mL/min/1. 73m2 LAB CHEMISTRY METHOD 02/19/2025 12:52 PM [facility] LAB Comment:Calculation based on the Chronic Kidney Disease Epidemiology Collaboration (CKD-EPI) equation refit without adjustment for race. BUN/Creatinine Ratio 20.1 LAB CHEMISTRY METHOD 02/19/2025 12:52 PM [facility] LAB Calcium 8.6 8.5 - 10.5 mg/dL LAB CHEMISTRY METHOD 02/19/2025 12:52 PM [facility] LAB AST (SGOT) 17 10 - 42 unit/L LAB CHEMISTRY METHOD 02/19/2025 12:52 PM [facility] LAB ALT (SGPT) 17 10 - 60 unit/L LAB CHEMISTRY METHOD 02/19/2025 12:52 PM [facility] LAB Alkaline Phosphatase 71 42 - 121 unit/L LAB CHEMISTRY METHOD 02/19/2025 12:52 PM EDT [facility] LAB Total Protein 6.5 6.0 - 8.0 g/dL LAB CHEMISTRY METHOD 02/19/2025 12:52 PM EDT [facility] LAB Albumin 3.4 3.2 - 5.0 g/dL LAB CHEMISTRY METHOD 02/19/2025 12:52 PM [facility] LAB Total Bilirubin 0.8 0.0 - 1.4 mg/dL LAB CHEMISTRY METHOD 02/19/2025 12:52 PM EDT [facility] LAB Blood Venous blood specimen / Unknown Venipuncture / Unknown 02/19/2025 8:57 AM EDT 02/19/2025 10:55 AM EDT us Sara Jackson MD LAB BLOOD ORDERABLES Fin al Result [facility] LAB [address] [place] [address], * (ABNORMAL) Complete blood count (02/19/2025 8:57 AM EDT) WBC 9.4 4.8 - 10.8 K/[facility] LAB HEMETOLOGY METHOD 02/19/2025 12:05 PM [facility] LAB RBC 4.00 3.80 - 4.80 M/[facility] LAB HEMETOLOGY METHOD 02/19/2025 12:05 PM [facility] LAB Hemoglobin 12.2 11.5 - 16.0 g/dL LAB HEMETOLOGY METHOD 02/19/2025 12:05 PM [facility] LAB Hematocrit 36.7 35.0 - 47.0 % LAB HEMETOLOGY METHOD 02/19/2025 12:05 PM [facility] LAB MCV 91.5 79.0 - 98.0 FL LAB HEMETOLOGY METHOD 02/19/2025 12:05 PM EDT [facility] MCH 30.4 27.0 - 32.0 pcg LAB HEMETOLOGY METHOD 02/19/2025 12:05 PM EDT [facility] LAB MCHC 33.2 32.0 - 37.0 g/dL LAB HEMETOLOGY METHOD 02/19/2025 12:05 PM EDT [facility] LAB RDW 12.9 11.0 - 15.0 % LAB HEMETOLOGY METHOD 02/19/2025 12:05 PM EDT [facility] LAB Platelets 243 130 - 400 K/mcL LAB HEMETOLOGY METHOD 02/19/2025 12:05 PM EDT [facility] LAB MPV 11.1(H) 7.0 - 11.0 FL LAB HEMETOLOGY METHOD 02/19/2025 12:05 PM EDT [facility] LAB NRBC 0.0 <1.0 % LAB HEMETOLOGY METHOD 02/19/2025 12:05 PM EDT [facility] LAB NRBC Absolute 0.00 <0.10 K/mcL LAB HEMETOLOGY METHOD 02/19/2025 12:05 PM EDT [facility] LAB Blood Venous blood specimen / Unknown Venipuncture / Unknown 02/19/2025 8:57 AM EDT 02/19/2025 10:55 AM EDT us Sara Jacksno MD LAB BLOOD ORDERABLES Fin al Result [facility] LAB [address] [place] [address], documented in this encounter Visit Diagnoses Diagnosis 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
--- OUTSIDE RECORDS SUMMARY | 2025-04-23 15:15 | XMS_ITS | Clinical Summary ---
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, CMS/HCC V28) from Last 3 Months Social History Tobacco Use Types Packs/Day Years Used Date Smoking Tobacco: Never Assessed Comments Unknown Sex and Gender Information Value Date Recorded Sex Assigned at Not on file Legal Sex Female 4:14 PM EST Gender Identity Not on file Sexual Orientation Not on file Plan of Treatment Health Maintenance Due Date Last Done Comments Diabetes: Annual Foot Exam 10/07/1945 Diabetes: Annual Retina Eye Exam 10/07/1945 DTaP,Tdap,and Td Vaccines (1 - Tdap) 10/07/1954 Pneumococcal Vaccine: 50+ Years (1 of 2 - PCV) 10/07/1954 Zoster Vaccines (1 of 2) 10/07/1985 RSV Immunization Adult Patients (1 - 1-dose 75+ series) 10/07/2010 Falls Risk Assessment 06/17/2022 Medicare Annual Wellness Visit 06/17/2022 Osteoporosis Screening (Bone Density Screening) 06/17/2022 Social Influencers of Health Screening 06/17/2022 Depression Screening 07/19/2024 COVID-19 Vaccine ( season) 2025 Influenza Vaccine (#1) 2025 Diabetes: Blood Sugar Control Test (HGBA1C) 06/02/2025 11/30/2024 Hypertension/CHF/CAD Annual BMP Blood Test 02/19/2026 02/19/2025, 12/26/2024, 12/25/2024, Additional history exists Cholesterol Screening (Lipid Panel) 11/30/2029 11/30/2024 HIB Vaccines Aged Out No longer eligi ble based on patient's age to complete this topic HPV Vaccines Aged Out No longer eligi ble based on patient's age to complete this topic Hepatitis A Vaccines Aged Out No long er eligible based on patient's age to complete this topic Hepatitis B Vaccines Aged Out No long er eligible based on patient's age to complete this topic IPV Vaccines Aged Out No longer eligi ble based on patient's age to complete this topic MMR Vaccines Aged Out No longer eligi ble based on patient's age to complete this topic Meningococcal ACWY Vaccine Aged Out N o longer eligible based on patient's age to complete this topic Meningococcal B Vaccine Aged Out No l onger eligible based on patient's age to complete this topic RSV Immunization Patients Under 20 months Aged Out No longer eligible based on patient's age to complete this topic Varicella Vaccines Aged Out No longer eligible based on patient's age to complete this topic Procedures Procedure Name Priority Date/Time Associated Diagnosis Comments URINALYSIS WITH REFLEX MICROSCOPIC Routine 03/08/2025 12:00 AM EDT Urinary tract infection, site not specified Altered mental status, unspecified URINALYSIS WITH REFLEX MICROSCOPIC Routine 03/08/2025 12:00 AM EDT Urinary tract infection, site not specified Altered mental status, unspecified CULTURE URINE Routine 03/08/2025 12:00 AM EDT Urinary tract infection, site not specified Altered mental status, unspecified COMPREHENSIVE METABOLIC PANEL Routine 02/19/2025 8:57 AM EDT Type 2 diabetes mellitus with diabetic chronic kidney disease ([facility] V24, [facility] V28) COMPLETE BLOOD COUNT Routine 02/19/2025 8:57 AM EDT Type 2 diabetes mellitus with diabetic chronic kidney disease ([facility] V24, [facility] V28) HEMOGLOBIN A1C Routine 11/30/2024 6:35 AM EDT Essential (primary) hypertension Type 2 diabetes mellitus without complications ([facility] V24, [facility] V28) LIPID PANEL WITH REFLEX TO DIRECT LDL Routine 11/30/2024 6:35 AM EDT Essential (primary) hypertension Type 2 diabetes mellitus without complications ([facility] V24, [facility] V28) from Last 3 Months or Most Recently Relevant to Health Maintenance Results * Urinalysis with reflex microscopic (03/08/2025 12:00 AM EDT) Specific [place] Urine 1.009 1.003 - 1.030 LAB URINALYSIS [...] URINALYSIS - AUTOMATED METHOD 03/08/2025 10:03 AM EDT [facility] Bilirubin, Urine Negative Negative LAB URINALYSIS - AUTOMATED METHOD 03/08/2025 10:03 AM EDT [facility] Blood, Urine Negative Negative LAB URINALYSIS - AUTOMATED METHOD 03/08/2025 10:03 AM EDT [facility] Urine Urine specimen obtained by clean catch procedure / Unknown Non-blood Collection / Unknown 03/08/2025 03/08/2025 9:52 AM EDT Sara Jackson MD LAB URINE ORDERABLES Fin al Result Performing Organization Address [facility]/ZIP Co de Phone Number [facility] [address] [place] [address], [place] [phone] * Culture urine (03/08/2025 12:00 AM EDT) Pathologist [facility] Culture, Urine 10,000-49,000 CFU/mL Mixed urogenital hay, no uropathogens present. Suggest repeat specimen if clinically indicated. 03/09/2025 8:52 AM EDT [facility] Urine Urine specimen obtained by clean catch procedure / Unknown Non-blood Collection / Unknown 03/08/2025 03/08/2025 9:52 AM EDT Sara Jackson MD LAB MICROBIOLOGY - GENER AL ORDERABLES Final Result Performing Organization Address City/[facility]/ZIP Co de Phone Number [facility] [address] [place] [address], [place] [phone] * (ABNORMAL) Complete blood count (02/19/2025 8:57 AM EDT) WBC 9.4 4.8 - 10.8 K/[facility] LAB HEMETOLOGY METHOD 02/19/2025 12:05 PM EDT [facility] RBC 4.00 3.80 - 4.80 M/[facility] LAB HEMETOLOGY METHOD 02/19/2025 12:05 PM [facility] LAB Hemoglobin 12.2 11.5 - 16.0 g/dL LAB HEMETOLOGY METHOD 02/19/2025 12:05 PM [facility] LAB Hematocrit 36.7 35.0 - 47.0 % LAB HEMETOLOGY METHOD 02/19/2025 12:05 PM [facility] LAB MCV 91.5 79.0 - 98.0 FL LAB HEMETOLOGY METHOD 02/19/2025 12:05 PM [facility] LAB MCH 30.4 27.0 - 32.0 pcg LAB HEMETOLOGY METHOD 02/19/2025 12:05 PM [facility] LAB MCHC 33.2 32.0 - 37.0 g/dL LAB HEMETOLOGY METHOD 02/19/2025 12:05 PM [facility] LAB RDW 12.9 11.0 - 15.0 % LAB HEMETOLOGY METHOD 02/19/2025 12:05 PM [facility] LAB Platelets 243 130 - 400 K/mcL LAB HEMETOLOGY METHOD 02/19/2025 12:05 PM [facility] LAB MPV 11.1(H) 7.0 - 11.0 FL LAB HEMETOLOGY METHOD 02/19/2025 12:05 PM [facility] LAB NRBC 0.0 <1.0 % LAB HEMETOLOGY METHOD 02/19/2025 12:05 PM [facility] LAB NRBC Absolute 0.00 <0.10 K/mcL LAB HEMETOLOGY METHOD 02/19/2025 12:05 PM [facility] LAB Blood Venous blood specimen / Unknown Venipuncture / Unknown 02/19/2025 8:57 AM EDT 02/19/2025 10:55 AM EDT Sara Jackson MD LAB BLOOD ORDERABLES Fin al Result [facility] [address] [place] [address], * (ABNORMAL) Comprehensive metabolic panel (02/19/2025 8:57 AM EDT) Sodium 140 133 - 145 mmol/L LAB CHEMISTRY METHOD 02/19/2025 12:52 PM [facility] Potassium 4.1 3.5 - 5.5 mmol/L LAB CHEMISTRY METHOD 02/19/2025 12:52 PM [facility] Chloride 105 96 - 110 mmol/L LAB CHEMISTRY METHOD 02/19/2025 12:52 PM [facility] LAB CO2 28 21 - 32 mmol/L LAB CHEMISTRY METHOD 02/19/2025 12:52 PM [facility] LAB Anion Gap 7 3 - 11 LAB CHEMISTRY METHOD 02/19/2025 12:52 PM [facility] Glucose 152(H) 70 - 100 mg/dL LAB CHEMISTRY METHOD 02/19/2025 12:52 PM [facility] BUN 27(H) 5 - 25 mg/dL LAB CHEMISTRY METHOD 02/19/2025 12:52 PM [facility] Creatinine 1.34(H) 0.50 - 1.10 mg/dL LAB CHEMISTRY METHOD 02/19/2025 12:52 PM [facility] LAB eGFR 38(L) >=60 mL/min/1. 73m2 LAB CHEMISTRY METHOD 02/19/2025 12:52 PM [facility] LAB Comment:Calculation based on the Chronic Kidney Disease Epidemiology Collaboration (CKD-EPI) equation refit without adjustment for race. BUN/Creatinine Ratio 20.1 LAB CHEMISTRY METHOD 02/19/2025 12:52 PM [facility] Calcium 8.6 8.5 - 10.5 mg/dL LAB CHEMISTRY METHOD 02/19/2025 12:52 PM [facility] AST (SGOT) 17 10 - 42 unit/L LAB CHEMISTRY METHOD 02/19/2025 12:52 PM [facility] ALT (SGPT) 17 10 - 60 unit/L LAB CHEMISTRY METHOD 02/19/2025 12:52 PM [facility] Alkaline Phosphatase 71 42 - 121 unit/L LAB CHEMISTRY METHOD 02/19/2025 12:52 PM [facility] Total Protein 6.5 6.0 - 8.0 g/dL LAB CHEMISTRY METHOD 02/19/2025 12:52 PM [facility] Albumin 3.4 3.2 - 5.0 g/dL LAB CHEMISTRY METHOD 02/19/2025 12:52 PM [facility] Total Bilirubin 0.8 0.0 - 1.4 mg/dL LAB CHEMISTRY METHOD 02/19/2025 12:52 PM [facility] Blood Venous blood specimen / Unknown Venipuncture / Unknown 02/19/2025 8:57 AM EDT 02/19/2025 10:55 AM EDT us Sara Jackson MD LAB BLOOD ORDERABLES Fin al Result [facility] [address] [place] [address], * (ABNORMAL) Lipid panel with reflex to direct LDL (11/30/2024 6:35 AM EDT) Cholesterol 125 0 - 200 mg/dL LAB CHEMISTRY METHOD 11/30/2024 8:58 AM EDT [facility] Triglycerides 180(H) 0 - 150 mg/dL LAB CHEMISTRY METHOD 11/30/2024 8:58 AM [facility] HDL 39(L) >=40 mg/dL LAB CHEMISTRY METHOD 11/30/2024 8:58 AM EDT [facility] LDL Calculated 50 0 - 100 mg/dL LAB CHEMISTRY METHOD 11/30/2024 8:58 AM EDT [facility] VLDL Cholesterol Sami 36 mg/dL LAB CHEMISTRY METHOD 11/30/2024 8:58 AM EDT [facility] Non HDL Chol. (LDL+VLDL) 86 <145 mg/dL LAB CHEMISTRY METHOD 11/30/2024 8:58 AM EDT [facility] Chol/HDL Ratio 3.2 0.0 - 4.4 LAB CHEMISTRY METHOD 11/30/2024 8:58 AM EDT [facility] Blood Venous blood specimen / Unknown Venipuncture / Unknown 11/30/2024 6:35 AM EDT 11/30/2024 8:27 AM EDT us Sara Jackson MD LAB BLOOD ORDERABLES Fin al Result [facility] [address] [place] [address], [place] [phone] * (ABNORMAL) Hemoglobin A1c (11/30/2024 6:35 AM EDT) Hemoglobin A1C 7.5(H) <6.5 % LAB CHEMISTRY METHOD 11/30/2024 12:02 PM EDT [facility] Mean Bld Glu Estim. 169 mg/dL LAB CHEMISTRY METHOD 11/30/2024 12:02 PM EDT [facility] Blood Venous blood specimen / Unknown Venipuncture / Unknown 11/30/2024 6:35 AM EDT 11/30/2024 8:27 AM EDT Sara Jackson MD LAB BLOOD ORDERABLES Fin al Result [facility] [address] [place] [address], [place] [phone] from Last 3 Months or Most Recently Relevant to Health Maintenance Insurance MEDICAID - [place] [facility] [facility] [employer] Care Teams Home And Family Living Professor Relationship Specialty Start Date End Date Sara Jackson MD PCP - General Family Medicine 11/30/24
--- OUTSIDE RECORDS SUMMARY | 2025-04-23 15:15 | XMS_ITS | Patient Health Record ---
Author Organization [facility] Address [address] [place] [address] Care Team Providers Care Staff Pharmacist Hospital Name Role Phone Larry Caba Unavailable [phone] Reason For Referral No Information Plan Of Treatment No Information
--- OUTSIDE RECORDS SUMMARY | 2025-04-23 15:15 | XMS_ITS | Encounter Summary ---
Author Organization [facility] Address [address] [place] [address] Care Team Providers Care Block And Case Maker Name Role Phone Sara Jackson MD Primary Care Provider + Encounter Details Date Type Department Care Team (Late st Contact Info) Description 12/26/2024 Lab Requisition [facility] - Main Lab [address] [place] [address] Sara Jackson MD [address] [id number] Type 2 diabetes mellitus without complications (CMS/HCC [...] Procedure Name Priority Date/Time Associated Diagnosis Comments HEPATITIS PANEL, ACUTE WITH REFLEX TO CONFIRMATION Routine 12/26/2024 5:53 AM EDT Type 2 diabetes mellitus without complications (CMS/HCC V24, CMS/HCC V28) COMPREHENSIVE METABOLIC PANEL Routine 12/26/2024 5:53 AM EDT Type 2 diabetes mellitus without complications (CMS/HCC V24, CMS/HCC V28) documented in this encounter Results * Hepatitis panel, acute with reflex to confirmation (12/26/2024 5:53 AM EDT) Hepatitis B Surface Ag Negative Negative LAB CHEMISTRY METHOD 12/26/2024 1:43 PM EDT [facility] Hepatitis A Antibody IgM Negative Negative LAB CHEMISTRY METHOD 12/26/2024 1:43 PM EDT [facility] Hep B Core IgM Negative Negative LAB CHEMISTRY METHOD 12/26/2024 1:43 PM T [facility] Hepatitis C Antibody Negative Negative LAB CHEMISTRY METHOD 12/26/2024 1:43 PM T [facility] Blood Venous blood specimen / Unknown Venipuncture / Unknown 12/26/2024 5:53 AM EDT 12/26/2024 9:00 AM EDT us Sara Jackson MD LAB BLOOD ORDERABLES Fin al Result [facility] [address] [place] [address], [place] [phone] * (ABNORMAL) Comprehensive metabolic panel (12/26/2024 5:53 AM EDT) Sodium 139 133 - 145 mmol/L LAB CHEMISTRY METHOD 12/26/2024 10:24 AM [facility] Potassium 4.6 3.5 - 5.5 mmol/L LAB CHEMISTRY METHOD 12/26/2024 10:24 AM [facility] Chloride 106 96 - 110 mmol/L LAB CHEMISTRY METHOD 12/26/2024 10:24 AM [facility] CO2 25 21 - 32 mmol/L LAB CHEMISTRY METHOD 12/26/2024 10:24 AM [facility] Anion Gap 8 3 - 11 LAB CHEMISTRY METHOD 12/26/2024 10:24 AM [facility] Glucose 222(H) 70 - 100 mg/dL LAB CHEMISTRY METHOD 12/26/2024 10:24 AM [facility] BUN 51(H) 5 - 25 mg/dL LAB CHEMISTRY METHOD 12/26/2024 10:24 AM [facility] Creatinine 1.81(H) 0.50 - 1.10 mg/dL LAB CHEMISTRY METHOD 12/26/2024 10:24 AM [facility] eGFR 26(L) >=60 mL/min/1. 73m2 LAB CHEMISTRY METHOD 12/26/2024 10:24 AM [facility] Comment:Calculation based on the Chronic Kidney Disease Epidemiology Collaboration (CKD-EPI) equation refit without adjustment for race. BUN/Creatinine Ratio 28.2 LAB CHEMISTRY METHOD 12/26/2024 10:24 AM [facility] Calcium 8.7 8.5 - 10.5 mg/dL LAB CHEMISTRY METHOD 12/26/2024 10:24 AM [facility] AST (SGOT) 18 10 - 42 unit/L LAB CHEMISTRY METHOD 12/26/2024 10:24 AM [facility] ALT (SGPT) 20 10 - 60 unit/L LAB CHEMISTRY METHOD 12/26/2024 10:24 AM [facility] Alkaline Phosphatase 106 42 - 121 unit/L LAB CHEMISTRY METHOD 12/26/2024 10:24 AM [facility] Total Protein 5.5(L) 6.0 - 8.0 g/dL LAB CHEMISTRY METHOD 12/26/2024 10:24 AM [facility] Albumin 2.9(L) 3.2 - 5.0 g/dL LAB CHEMISTRY METHOD 12/26/2024 10:24 AM [facility] Total Bilirubin 0.5 0.0 - 1.4 mg/dL LAB CHEMISTRY METHOD 12/26/2024 10:24 AM [facility] Blood Venous blood specimen / Unknown Venipuncture / Unknown 12/26/2024 5:53 AM EDT 12/26/2024 9:00 AM EDT us Sara Jackson MD LAB BLOOD ORDERABLES Fin al Result [facility] [address] [place] [address], documented in this encounter Visit Diagnoses Diagnosis Type 2 diabetes mellitus without complications (CMS/HCC V24, CMS/HCC V28) documented in this encounter Care Teams Block And Case Maker Relationship Specialty Start Date End Date Sara Jackson MD PCP - General Family Medicine 11/30/24 documented as of this encounter
== END 2025-04-23 13:23 | disposition home or self-care (01) ==
LOC: HO.HCS 12:54
PROVIDERS: PCP Internal Medicine; Visit Provider Internal Medicine
DX: I47.10 Supraventricular tachycardia, unspecified (principal); Z95.0 Presence of cardiac pacemaker; I10 Essential (primary) hypertension; Z98.890 Other specified postprocedural states
CPT/HCPCS: 93280; 99214; G2211

== ENCOUNTER → 2025-04-23 12:54 | Outpatient (BNVA) | payer MEDICARE, SELFPAY | PROVIDERS: PCP Internal Medicine; Visit Provider Internal Medicine | DX: Z45.018 Encounter for adjustment and management of other part of cardiac pacemaker (principal); I47.19 Other supraventricular tachycardia; I10 Essential (primary) hypertension; Z98.890 Other specified postprocedural states | CPT/HCPCS: 93280; 99212 ==